=== PATIENT | female | born 1990 | race Native Hawaiian/Other Pacific Islander ===

== ENCOUNTER 2022-08-22 11:25 | Outpatient (CLI) | payer OTHER, SELFPAY ==
[2022-08-22 11:48] LABS: Basophils Absolute Auto 0.02 K/uL (0.00-0.30); Basophils Percent Auto 0.4 % (0.0-3.0); Eosinophils Absolute Auto 0.23 K/uL (0.00-0.50); Hematocrit 41.8 % (33.0-51.0); Hemoglobin* 14.6 gm/dL (12.0-16.0); Lymphocytes Percent Auto 46.2 % (20-44); Mean Corpuscular HGB Conc 35 gm/dL (32-36); Mean Corpuscular Hemoglobin 32 pg (26-34); Mean Corpuscular Volume 91 fL (80-100); Monocytes Absolute Auto 0.24 K/UL (0.00-0.90); Monocytes Percent Auto 5.2 % (0.0-11.0); Neutrophils Percent Auto 43.2 % (42.0-72.0); Platelet Count* 220 K/uL (140-440); Red Blood Count 4.62 m/uL (4.00-5.20); White Blood Count* 4.63 K/uL (4.50-11.00)
[2022-08-22 11:49] LABS: Slide Review Reflex No
[2022-08-22 11:57] LABS: Hemoglobin A1C* 5.6 % (0-5.6)
[2022-08-22 22:06] LABS: Albumin* 5.5 g/dL (3.3-5.0); Chloride* 102 mmol/L (96-114); Potassium* 4.6 mmol/L (3.6-5.1); Sodium* 139 mmol/L (135-149)
[2022-08-22 22:08] LABS: Bilirubin Total* 1.9 mg/dL (0.1-1.5); Carbon Dioxide* 27 mmol/L (20-32); Cholesterol* 278 mg/dL (90-199); Creatinine* 0.8 mg/dL (0.5-1.5); Estimated Glomerular Filt Rate 100 ml/min
[2022-08-22 22:09] LABS: Alanine Aminotransferase* 28 U/L (4-35); Alkaline Phosphatase* 57 U/L (40-150); Aspartate Amino Transferase* 41 U/L (12-35); Blood Urea Nitrogen* 14 mg/dL (5-24); Glucose* 103 mg/dL (60-115); Triglycerides* 147 mg/dL (40-149)
[2022-08-22 22:10] LABS: Calcium* 10.1 mg/dL (8.4-10.6); HDL Cholesterol* 51 mg/dL (>=50); LDL Cholesterol Calculated 198 mg/dL (<100)
[2022-08-23 00:15] LABS: TSH With Reflex to FT4* > 100.000 uIU/mL (0.270-4.200)
[2022-08-23 00:51] LABS: Free T4 Free Thyroxine* 0.32 ng/dL (0.70-1.85)
== END 2022-08-22 11:26 | disposition home or self-care (01) ==
PROVIDERS: PCP Family Medicine; Visit Provider Family Medicine
DX: Z01.419 Encounter for gynecological examination (general) (routine) without abnormal findings (principal); E66.9 Obesity, unspecified; R53.83 Other fatigue; Z13.1 Encounter for screening for diabetes mellitus; Z13.6 Encounter for screening for cardiovascular disorders
CPT/HCPCS: 80053; 80061; 83036; 84439; 84443; 85025; 86376

== ENCOUNTER 2022-08-28 07:10 | Outpatient (CLI) | payer OTHER, SELFPAY | END 2022-08-28 07:11 | disposition home or self-care (01) | PROVIDERS: PCP Family Medicine; Visit Provider Family Medicine | DX: R00.2 Palpitations (principal); I49.9 Cardiac arrhythmia, unspecified | CPT/HCPCS: 93225; 93226 ==

== ENCOUNTER 2023-07-09 11:57 | Outpatient (REF) | payer OTHER, SELFPAY ==
[2023-07-09 13:00] LABS: Free T4 Free Thyroxine* 1.15 ng/dL (0.70-1.85)
== END 2023-07-09 11:58 | disposition home or self-care (01) ==
LOC: NPINS 11:57
PROVIDERS: PCP Preventive Medicine Occupational Medicine
DX: E03.9 Hypothyroidism, unspecified (principal)
CPT/HCPCS: 84439; 84443

== ENCOUNTER 2024-12-21 12:54 | Outpatient (CLI) | payer OTHER, SELFPAY | END 2024-12-21 12:55 | disposition home or self-care (01) | LOC: LKVREF 12:56 | PROVIDERS: PCP Family Medicine; Visit Provider Family Medicine | DX: E78.00 Pure hypercholesterolemia, unspecified (principal); E03.9 Hypothyroidism, unspecified; R53.83 Other fatigue; E66.3 Overweight | CPT/HCPCS: 80053; 80061; 82248; 84443 ==

== ENCOUNTER 2025-04-21 15:15 | Outpatient (CLI) | payer OTHER, SELFPAY ==
[2025-04-21 23:17] LABS: Chlamydia DNA Amplified* NOT DETECTED (No Detected); GC DNA Amplified* NOT DETECTED (No Detected)
[2025-04-27 05:21] LABS: HPV Source Cervix; HPV, High Risk by TMA Not Detected
== END 2025-04-21 15:16 | disposition home or self-care (01) ==
PROVIDERS: PCP Family Medicine; Visit Provider Physician Assistant Medical
DX: Z12.4 Encounter for screening for malignant neoplasm of cervix (principal); Z11.51 Encounter for screening for human papillomavirus (HPV); Z11.3 Encounter for screening for infections with a predominantly sexual mode of transmission
CPT/HCPCS: 87491; 87591; 87624; 87625; 88141; 88142